=== PATIENT | female | born 1980 | race African-American/Black ===

== ENCOUNTER 2025-06-11 11:53 | Emergency (ER) | payer SELFPAY ==
[~2025-06-11] VITALS: Ht 172.7 cm; Wt 95.0 kg
[2025-06-11 11:58] VITALS: O2SAT 100
[2025-06-11 12:07] VITALS: BP 137/98; PULSE 79; RESP 16; TEMP 36.7; O2SAT 100
== END 2025-06-11 15:49 | disposition left against medical advice (07) ==
LOC: ER 11:53
DX: G43.909 Migraine, unspecified, not intractable, without status migrainosus (principal); Z53.21 Procedure and treatment not carried out due to patient leaving prior to being seen by health care provider
CPT/HCPCS: 99281